=== PATIENT | female | born 1990 | race Caucasian/White ===

== ENCOUNTER 2017-08-30 14:00 | Outpatient (CLI) | payer OTHER, SELFPAY ==
[2017-08-30 14:12] VITALS: BMI 23.1
[2017-08-30] MEDS: Lactated Ringers 1,000 ML 50 ML IV (14:21)
[2017-08-30 15:00] LABS: Hematocrit 41.6 % (37-47); Hemoglobin 14.6 g/dl (12.0-15.0); Mean Corp Hgb Conc 35.1 g/gl (32-36); Mean Corpuscular Hgb 30.7 pg (27.0-32.0); Mean Corpuscular Volume 87.4 fL (81-99); Mean Platelet Vol. 12.3 fl (6.2-12.0); Platelet Count 77 K/mm3 (150-450); RBC Distribution Width CV 12.3 % (11.6-14.6); RBC Distribution Width SD 38.7 fl (35.1-43.9); Red Blood Count 4.76 M/mm3 (4.2-5.4); White Blood Count 13.3 K/mm3 (4.4-11.0)
[2017-08-30 15:01] LABS: Scan Indicated on CBC? Y/N NO
[2017-08-30 15:06] LABS: International Normalized Ratio 0.9; Prothrombin Time (Protime)PT. 11.9 SECONDS (11.7-14.9)
[2017-08-30 15:07] LABS: Partial Thromboplast Time 33.6 Seconds (24.1-36.2)
[2017-08-30 15:12] LABS: AST(SGOT) 243 U/L (15-37); Alanine Aminotransfer ALT/SGPT 231 U/L (13-56); Creatinine, Serum 0.74 mg/dL (0.55-1.02); EST Glomerular Filtration Rate 99 mL/min (>60); Est Glom Filt Rate - Afr Amer 120 mL/min (>60); Estimated Creatinine Clearance 102.76 ml/min
[2017-08-30] MEDS: Magnesium Sulfate 20 GM/500 ML BAG IV (15:17)
--- NOTE | 2017-08-30 15:36 | OB.TRI.NOTE ---
History of Present Illness Reason For Visit: HELLP SYNDROME Date of Service: 08/30/17 Gestational age: 38 History of Present Illness: 27yo @ 38 wks, presented to L&D with Headache and Epigastric pain- at time of evaluation pt was found to have BP severe range. PT had labs drawn- which showed elevated Liver enzymes and Low platelets. pt is dated by first trimester u/s which was not c/w LMP. Pt offers no other concerns today. Home Medications Medication Instructions Recorded Vits [Prenatabs FA ] 1 tablet PO DAILY 08/30/17 Allergies No Known Allergies Allergy (Verified 08/30/17 14:15) Physical Exam General: Alert, Oriented x3 Abdomen: Soft, Tender - pain in RUQ Extremities:: Deep tendon reflexes - brisk. NO CLONUS Estimated gestational size: Appropriate for gestational size Presentation: Cephalic Cervix Dilation (cm): 0.5 Station: -2 Effacement (%): 60 NST - FHR Rate Baby A Baseline: 140 Variability:: Moderate Accelerations:: 15 x 15 Decelerations:: None NST Reactive:: Yes FHR Category:: Category I Uterine Activity:: irregular Impression/Plan 27yo @ 38 wks with HELLP SYNDROME, remote from delivery 1) reviewed HELLP SYNDROME with patient- offered transport to tertiary care center- accepted 2) Magnesium Sulfate 6gm loading dose given , 2 gm/hr 3) labs reviewed AST/ALT 243/231, PLTS 77 4) Reviewed Regional vs General anesthesia if C/S indicated 5) Labetalol protocol Started- required 40mg to bring BP down to 130s/80-90s 6) Spoke with M Dr. Gina Srinivasan, then spoke to transport team- awaiting call from Dr. Derek Owens who will be accepting physician at [place] 7) will call transport service as soon as Accepting physician is reached and plan reviewed
[2017-08-30 15:40] LABS: Mucous, Urine 0 SEEN /hpf (<or=2+)
[2017-08-30 15:55] LABS: Color, Urine Yellow (Yellow); Glucose, Dipstick Normal (Normal); Ketone-Dipstick Negative (Negative); Leukocyte Esterase-Dipstick 100 /ul (Negative); Nitrite-Dipstick Negative (Negative); Occult Blood-Urine 250 /ul (Negative); Protein-Dipstick 100 mg/dl (Negative); Urine Bilirubin Dipstick Negative (Negative); Urine Clarity Clear (Clear); Urine Urobilinogen Normal (Normal); Urine pH 6.5 (5.0 - 8.0)
[2017-08-30 16:11] LABS: Squamous Epithelial Cells - UA 5-10 SEEN /hpf (5-10); White Blood Cells 5-10 SEEN /hpf (0-5)
[2017-08-30 16:12] LABS: Bacteria 1+ /hpf (None Seen); Red Blood Cells-Urine 0-5 SEEN /hpf (0-5)
[2017-08-30 16:21] LABS: Protein, Urine (Random) 305.8 mg/dL (<11.9); Protein:Creat Ratio 12903 mg/g CRE (0-200)
== END 2017-08-30 18:30 | disposition other institution (70) ==
LOC: WP 08-31 09:03 → WPOUT 08-31 12:29
PROVIDERS: Family Provider Internal Medicine; PCP Internal Medicine; Visit Provider Obstetrics & Gynecology
DX: O14.23 HELLP syndrome (HELLP), third trimester (principal); Z3A.38 38 weeks gestation of pregnancy
CPT/HCPCS: 96365; 96366 ×3; 36415; 59025; 59050; 81001; 82565; 82570; 84156; 84450; 84460; 84550; 85027; 85610; 85730; 86850; 86900; 94760; 99218; J7120; G0378

== ENCOUNTER 2019-06-29 22:55 | Inpatient (IN) | payer OTHER, SELFPAY ==
[2019-06-29 23:24] VITALS: BMI 22.2
[2019-06-29] MEDS: Lactated Ringers 1,000 ML 200 ML IV (23:28)
[2019-06-29] MEDS: Lactated Ringers 500 ML 999 ML IV (23:35)
[2019-06-29 23:56] LABS: Absolute Lymphocyte Count 1.89 X10^3/uL (0.83-4.51); Absolute Neutrophil Count 9.9 X10^3/uL (2.0-7.7); Basophil# 0.03 X10^3/uL; Basophil% 0.2 % (0-1); Eosinophil# 0.06 X10^3/uL; Eosinophils% 0.5 % (0-5); Hematocrit 41.2 % (37-47); Hemoglobin 13.7 g/dL (12.0-15.0); Lymphocyte # 1.89 X10^3/ul (4.0); Mean Corp Hgb Conc 33.3 g/dL (32-36); Mean Corpuscular Hgb 30.1 pg (27.0-32.0); Mean Corpuscular Volume 90.5 fL (81-99); Monocyte# 0.62 X10^3/uL; Monocyte% 4.9 % (0-10); NRBC Flagged by Analyzer 0 % (0-5); Neutrophil # 9.94 X10^3/uL (2.7-7.7); Neutrophil % 79.1 % (47-70); Platelet Count 155 K/mm3 (150-450); RBC Distribution Width CV 12.4 % (11.6-14.6); RBC Distribution Width SD 40.6 fl (35.1-43.9); Red Blood Count 4.55 M/mm3 (4.2-5.4); White Blood Count 12.6 K/mm3 (4.4-11.0)
[2019-06-30] MEDS: 0.9% Saline Lock 10 ML Syringe IV (00:38)
--- NOTE | 2019-06-30 00:40 | HP.PCM_ITS ---
- Problem List (1) History of HELLP syndrome, currently Status: Acute (2) History of prior with IUGR Status: Acute History Date of Admission: 06/29/19 Final JASMINE: 07/06/19 Final JASMINE Source: LMP Gestational age: 39 Weeks and 1 Days History of this : This is a 29 year-old, G [2], P [1001], at 39 weeks gestational age presents with contractions that were on and off throughout the day. Increased in frequency and intensity late last night and came to hospital and found to be in active labor. No leakage of fluid or active bleeding. course uncomplicated. Allergies No Known Allergies Allergy (Verified 08/30/17 14:15) Home Medications: Home Medications Vits [Prenatabs FA ] 1 tablet PO DAILY 08/30/17 Smoking Status: Never smoker Alcohol: None Number of Fetus(es): 1 NST - FHR Rate Baby A Baseline: 140 Variability:: Moderate Accelerations:: 15 x 15 Decelerations:: None NST Reactive:: Yes FHR Category:: Category I Uterine Activity:: Every 2-3 minutes, strong History Past Pregnancies: Past Pregnancies Delivery Date Name GA/ Weeks Outcome Route Wt Infant Sex Labor Length Anesthesia Delivery Location Provider FOB Labs: Mom's Labs & Results 06/29/19 06/29/19 23:28 23:28 WBC 12.6 H RBC 4.55 Hgb 13.7 Hct 41.2 MCV 90.5 MCH 30.1 MCHC 33.3 RDW Std Deviation 40.6 RDW Coeff of Florecita 12.4 Plt Count 155 MPV 12.0 Immature Gran % (Auto) 0.300 Neut % (Auto) 79.1 H Lymph % (Auto) 15.0 L Schleicher % (Auto) 4.9 Eos % (Auto) 0.5 Baso % (Auto) 0.2 Absolute Neuts (auto) 9.9 H Absolute Lymphs (auto) 1.89 Nucleated RBC % 0 Blood Type Pending Antibody Screen Pending Course Did the patient receive Yes care? Labs Blood Type: A RH: POSITIVE RPR/VDRL/Syphilis Nonreactive Rubella status Immune HbSAg Negative Date Done: 11/28/18 Chlamydia Negative Gonorrhea Negative HIV/AIDS Non-Reactive Group B Strep: Negative Current Obstetrical History Gestational Diabetes No Incompetent Cervix No Infertility No IUGR No Macrosomia No Hypertension/Pre-eclampsia No Placenta Previa/Abruption No PTL/PROM No Uterine anomaly No Oligohydramnios No Polyhydramnios No Multiple gestation No Past Medical History Asthma No Diabetes No Hypertension No Heart disease No Mitral valve prolapse No Neurologic/Seizure disorder/ No Migraines Kidney disease No Liver disease No Varicosities No Clotting disorders/Hx of DVT No Thyroid Dysfunction No Other medical diseases No Psychiatric disorders No Major trauma No Abnormal PAP smear No Sleep apnea No Mammogram in the last 2 years No Medications Taken During Dose/Freq.: [aspirin] 81mg/daily Reason for taking medication [ pt has hx of HELLP syndrome-was taking low dose aspirin] ASA preventatively Social History Marital Status: Alleged father Kuldeep Cross Hx Smoking No Smoking Status Never smoker How long have you used pt denies substances (years)? Review of Systems Constitutional: Denies: Chills, Fever, Weight Change Eyes: Denies: Blurred vision HEENT: Denies: Head Aches, Sinus Congestion, Sinus Drainage Cardiovascular: Denies: Chest Pain, Palpitations Gastrointestinal: Denies: Nausea, Vomiting Genitourinary: Denies: Dysuria Psychiatric: Denies: Anxiety, Depression, Homicidal Ideations, Suicidal Ideations Physical Exam General: Alert, Oriented x3, Cooperative HEENT: Atraumatic, Normocephalic Cardiovascular: Regular rate, Regular Rhythm, No murmurs Lungs: Clear to auscultation, Normal air movement, No rhonchi, No wheeze Abdomen: Non Tender, Gravid Extremities:: No edema Neurological: Deep Tendon Reflexes 2+/4 and Symmetrical. Negative for: Clonus FACE HARDENER: Normal external genitalia Estimated gestational size: Appropriate for gestational size Presentation: Cephalic Cervix Dilation (cm): 7 - vertex, IBOW Station: -1 Effacement (%): 95 Assessment/Plan All Active Problems History of HELLP syndrome, currently (Acute) History of prior with IUGR (Acute) This is a 29 year-old, G [2], P [1001], at 39 weeks gestational age. A:Active labor Category 1 FHT P: 1) Admit to L&D 2) Routine labs, saline lock 3) Initially requesting epidural for pain management but then decided to request continuous labor support and no epidural at this time. Frequent positional c hanges, out of bed, peanut ball. 4) notified of patient in labor.
[2019-06-30] MEDS: Oxytocin 30 units/NS 500 ml 30 UNITS/500 ML IV.SOLN 334 UNITS IV (04:32)
--- NOTE | 2019-06-30 04:52 | PCM.OPRPT ---
Problem List (1) History of HELLP syndrome, currently Status: Acute (2) History of prior with IUGR Status: Acute (3) Vaginal delivery Status: Acute (4) First degree perineal laceration Status: Acute Vaginal Delivery Maternal Presentation: Active Labor Amniotic Membrane Rupture Type: Artificial Amniotic Fluid Description: Clear Final JASMINE: 07/06/19 Gestational age: 39 Weeks and 1 Days Date of Procedure: 06/30/19 Pre-Operative Diagnosis: Active Labor Post-Operative Diagnosis: Surgery/ Procedure Performed: Spontaneous Vaginal Delivery Type of Anesthesia: None Description of Procedure: Progressed to complete with strong urge to push. Unmedicated of viable male infant over first degree perineal laceration APGARS 8,9. Infant head delivered and body forth coming. Infant placed on maternal abdomen, mouth and nares suctioned for secretions, strong cry. Pitocin started for active 3rd stage management. Delayed cord clamping, cord clamped and cut after pulsations ceased by FOB. Placenta delivered spontaneously via chávez, intact, 3 vessel cord. Perineum inspected and revealed first degree perineal laceration. Repaired with 3.0 vicryl, no anesthesia due to small figure 8 stitch, patient consented. Well approximated and hemostasis achieved. Fundus firm, EBL 200ml. Vaginal sweep completed. Sponge and instrument count correct. Mom and baby stable. Family bonding well. Planning to breastfeed. notified of patient delivery. Presentation: Vertex Placental Delivery Description: Spontaneous Placenta Disposition: [facility] Cord Vessel Description: 3 Vessels Cord Entanglement: None Estimated Blood Loss: 200 ml Infant A gender: Male (1 minute): 8 (5 minute): 9 Episiotomy Description: None Laceration: Perineal Extension/lac, 1st degree Medications given after delivery: IV Pitocin Complications: None
[2019-06-30] MEDS: Ibuprofen 600 MG Tablet PO (05:39)
[2019-06-30 07:40] VITALS: BP 113/71; PULSE 70; RESP 14; TEMP 36.9
[2019-06-30 12:10] VITALS: BP 98/54; PULSE 77; RESP 16; TEMP 36.6
[2019-06-30 16:05] VITALS: BP 104/65; PULSE 83; RESP 18; TEMP 37.1
[2019-06-30 20:02] VITALS: BP 110/72; PULSE 78; RESP 16; TEMP 36.6
[2019-07-01 00:10] VITALS: BP 102/57; PULSE 74; RESP 16; TEMP 36.9
[2019-07-01 03:57] VITALS: BP 106/61; PULSE 66; RESP 16; TEMP 36.6
[2019-07-01 05:56] LABS: Hematocrit 39.9 % (37-47); Hemoglobin 13.3 g/dL (12.0-15.0); Mean Corp Hgb Conc 33.3 g/dL (32-36); Mean Corpuscular Hgb 29.8 pg (27.0-32.0); Mean Corpuscular Volume 89.5 fL (81-99); Platelet Count 141 K/mm3 (150-450); RBC Distribution Width CV 12.4 % (11.6-14.6); RBC Distribution Width SD 40.6 fl (35.1-43.9); Red Blood Count 4.46 M/mm3 (4.2-5.4)
--- NOTE | 2019-07-01 07:44 | PCM.PN.OB ---
Patient Problems: Active and Suspected Problems History of HELLP syndrome, currently (Acute) History of prior with IUGR (Acute) Vaginal delivery (Acute) First degree perineal laceration (Acute) Subjective: pt seen at bedside, doing well. reports good pain control. lochia mild, breast feeding, voiding w/o difficulty - Physical Exam Vitals/I&O's: Vital Signs Temp Pulse Resp BP 97.8 F 66 16 106/61 07/01/19 03:57 07/01/19 03:57 07/01/19 03:57 07/01/19 03:57 Oxygen Delivery Method Room Air Weight: 60.7 kg Body Mass Index (BMI) 22.2 Intake and Output for Last 24 Hours 06/29/19 06/30/19 07/01/19 23:59 23:59 23:59 Intake Total 23.33 / 23.33 2883.33 / 2883.33 1000 / 1000 Output Total 150 / 150 Balance 23.33 / 23.33 2733.33 / 2733.33 1000 / 1000 General: Alert, Oriented x3 Laboratory Results 07/01/19 05:10: WBC 10.0, RBC 4.46, Hgb 13.3, Hct 39.9, MCV 89.5, MCH 29.8, MCHC 33.3, RDW Std Deviation 40.6, RDW Coeff of Florecita 12.4, Plt Count 141 L, MPV 11.0 Current Medications Acetaminophen (Tylenol) 1,000 mg PO Q8H PRN PRN PRN Reason: Pain Score 1-3/10 Bisacodyl (Dulcolax) 10 mg RECTAL UD PRN PRN Reason: If no BM Dibucaine (Dibucaine) 1 applic TOPICAL TID PRN PRN; Protocol PRN Reason: Discomfort Hydrocortisone (Hytone) 1 applic TOPICAL TID PRN PRN; Protocol PRN Reason: Discomfort Ibuprofen (Motrin) 600 mg PO Q6H PRN PRN PRN Reason: Pain Score 1-3/10 Last Admin: 06/30/19 05:39 Dose: 600 mg Documented by: Methylergonovine Maleate (Methergine) 0.2 mg IM X1 PRN PRN Reason: Excess bleeding/uterine atony Ondansetron HCl (Zofran) 4 mg IV Q4H PRN PRN PRN Reason: Nausea Senna/Docusate Sodium (Senokot-S, [place]-Colace) 1 - 2 tablet PO DAILY PRN PRN PRN Reason: Constipation Simethicone (Mylicon) 80 mg PO PCHS PRN PRN Reason: Indigestion/Stomach pain Sodium Chloride () 5 - 15 ml IV UD PRN PRN Reason: SALINE FLUSH Medical Necessity - Tobacco Use Smoking Status: Never smoker Assessment/Plan All Active Problems History of HELLP syndrome, currently (Acute) History of prior with IUGR (Acute) Vaginal delivery (Acute) First degree perineal laceration (Acute) PPD#1, doing well routine care pain mgmt dc home
--- NOTE | 2019-07-01 07:48 | DCINST_ITS ---
Discharge Diet: No Restrictions Discharge Activity: Return to Normal Activity, May not drive while taking narcotic pain medications., May Shower May resume sexual activity in: 4-6 weeks Additional Activity Instructions:: Nothing in the vagina for 4-6 weeks. You may return to work/school in 6 weeks. Call your doctor if your incision/area has: Continuous Slow Oozing, Sudden Increased Bleeding, Increased Pain/ Swelling, Increased Redness, Foul Smelling Discharge Additional Instructions: If you experience any of the following, contact your healthcare provider. * Bleeding that soaks a pad every hour for 2 hours * Fever 100.4 or higher * Unrelieved incision or abdominal pain * Swelling, redness, discharge or bleeding from your incision or episiotomy site * Your incision begins to separate * Problems urinating (including inability to urinate or burning while urinating). * Visual changes * Severe headache * Flu-like symptoms * Pain or redness in one of both of your breasts * Pain, warmth, tenderness or swelling in your legs, especially the calf area * Frequent nausea and vomiting * Symptoms of depression or anxiety If you experience any of the following, call 911 or go to the nearest Emergency Room. * Chest pain * Problems breathing * Seizure activity * Partial or complete paralysis of a body part, slurred speech, weakness or drooping of the face, or a sudden inability to walk or hold your balance Allergies/Adverse Reactions: Allergies No Known Allergies Allergy (Verified 08/30/17 14:15) Medications to take at Discharge Vits [Prenatabs FA ] 1 tablet PO DAILY 08/30/17 Ibuprofen [Motrin] 600 mg PO Q6H PRN PRN #60 tab 07/01/19 The following prescriptions were given: Ibuprofen [Motrin] 600 mg PO Q6H PRN PRN #60 tab PRN Reason: Pain Score 1-310 Transmission Status: Pending to [id number] When: Call to make an appointment with your doctor in 1-2 weeks then at 6 weeks. . Primary Care Physician: Kacey Taylor MD [Primary Care Provider] - Test Results: Test results from this visit will be discussed in further detail at your follow- up appointment, if applicable.
--- NOTE | 2019-07-01 07:48 | PCM.DCVAG ---
Discharge Diet: No Restrictions Discharge Activity: Return to Normal Activity, May not drive while taking narcotic pain medications., May Shower May resume sexual activity in: 4-6 weeks Additional Activity Instructions:: Nothing in the vagina for 4-6 weeks. You may return to work/school in 6 weeks. Call your doctor if your incision/area has: Continuous Slow Oozing, Sudden Increased Bleeding, Increased Pain/ Swelling, Increased Redness, Foul Smelling Discharge Additional Instructions: If you experience any of the following, contact your healthcare provider. Bleeding that soaks a pad every hour for 2 hours Fever 100.4 or higher Unrelieved incision or abdominal pain Swelling, redness, discharge or bleeding from your incision or episiotomy site Your incision begins to separate Problems urinating (including inability to urinate or burning while urinating). Visual changes Severe headache Flu-like symptoms Pain or redness in one of both of your breasts Pain, warmth, tenderness or swelling in your legs, especially the calf area Frequent nausea and vomiting Symptoms of depression or anxiety If you experience any of the following, call 911 or go to the nearest Emergency Room. Chest pain Problems breathing Seizure activity Partial or complete paralysis of a body part, slurred speech, weakness or drooping of the face, or a sudden inability to walk or hold your balance Allergies/Adverse Reactions: Allergies No Known Allergies Allergy (Verified 08/30/17 14:15) Medications to take at Discharge Vits [Prenatabs FA ] 1 tablet PO DAILY 08/30/17 Ibuprofen [Motrin] 600 mg PO Q6H PRN PRN #60 tab 07/01/19 The following prescriptions were given: Ibuprofen [Motrin] 600 mg PO Q6H PRN PRN #60 tab PRN Reason: Pain Score 1-3/10 Transmission Status: Pending to [facility] When: Call to make an appointment with your doctor in 1-2 weeks then at 6 weeks. . Primary Care Physician: Kacey Taylor MD [Primary Care Provider] - Test Results: Test results from this visit will be discussed in further detail at your follow-up appointment, if applicable.
[2019-07-01 08:30] VITALS: BP 106/70; PULSE 80; RESP 14; TEMP 36.6
[2019-07-01 14:10] VITALS: BP 97/55; PULSE 75; RESP 12; TEMP 36.6
== END 2019-07-01 16:35 | disposition home or self-care (01) | DRG 807 ==
PROVIDERS: Admitting Provider Advanced Practice Midwife; Family Provider Internal Medicine; PCP Internal Medicine; Visit Provider Advanced Practice Midwife
DX: O14.24 HELLP syndrome, complicating childbirth (principal); Z37.0 Single live birth; Z3A.39 39 weeks gestation of pregnancy; O70.0 First degree perineal laceration during delivery
CPT/HCPCS: 59025; 59050; 85025; 85027; 86850; 86900; 86901; 99218; J7120; A4216; G0378

== ENCOUNTER 2021-11-13 02:56 | Inpatient (IN) | payer OTHER, SELFPAY ==
[2021-11-13] VITALS (46 sets, daily range): BP systolic 78–142; BP diastolic 48–79; PULSE 65–98; RESP 12–16; TEMP 36.3–37.3; O2SAT 97–100; BMI 22.5
[2021-11-13] MEDS: Lactated Ringers 1,000 ML 200 ML IV (03:00)
[2021-11-13] MEDS: Lactated Ringers 500 ML 999 ML IV ×2 (03:00→07:01)
[2021-11-13 03:18] LABS: Absolute Lymphocyte Count 1.83 X10^3/uL (0.83-4.51); Absolute Neutrophil Count 7.5 X10^3/uL (2.0-7.7); Basophil# 0.02 X10^3/uL; Basophil% 0.2 % (0-1); Eosinophil# 0.06 X10^3/uL; Eosinophils% 0.6 % (0-5); Hematocrit 40.3 % (37-47); Hemoglobin 13.6 g/dL (12.0-15.0); Lymphocyte # 1.83 X10^3/ul (0.83-4.51); Lymphocyte % 18.1 % (19-41); Mean Corp Hgb Conc 33.7 g/dL (32-36); Mean Corpuscular Hgb 30.3 pg (27.0-32.0); Mean Corpuscular Volume 89.8 fL (81-99); Mean Platelet Vol. 11.6 fl (6.2-12.0); Monocyte# 0.66 X10^3/uL; Monocyte% 6.5 % (0-10); NRBC Flagged by Analyzer 0 % (0-5); Neutrophil # 7.53 X10^3/uL (2.7-7.7); Neutrophil % 74.4 % (47-70); Platelet Count 159 K/mm3 (150-450); RBC Distribution Width SD 39.1 fl (35.1-43.9); Red Blood Count 4.49 M/mm3 (4.2-5.4); White Blood Count 10.1 K/mm3 (4.4-11.0)
[2021-11-13] MEDS: fentaNYL-bupivacaine (epidural) 100 ML BAG EPIDURAL (04:31)
--- NOTE | 2021-11-13 06:39 | HP.PCM.OB_ITS ---
HPI - General General Date of Admission: 11/13/21 HPI Narrative LOU CORREIA, is a 31 F at 38.3 weeks gestation who presents in spontaneous labor. Patient reports starting contractions yesterday that continued to increase in intensity and frequency. Denies any loss of fluid or vaginal bleeding. Positive movement. She has a history of preeclampsia with first . This has been uncomplicated. Maternal Data Information JASMINE Calculator Estimated Delivery Date Method Current WG Current Estimate 11/24/21 Manual 38w 3d PFSH [facility] Medical History Family history of hearing loss at age younger than 7 years Pre-eclampsia Home Medications Prenatabs FA 1 tab PO DAILY 08/30/17 [History Last Taken 11/12/21 10:00] aspirin 81 mg PO DAILY 11/13/21 [History Last Taken Unknown] Allergy/AdvReac Type Severity Reaction Status Date / Time No Known Allergies Allergy Verified 08/30/17 14:15 Surgical History History of placement of ear tubes [place] teeth extracted Social History Smoking Status: Never smoker History Elective abortions Hx Para 2 Spontaneous abortions Hx # Term Pregnancies Ectopic pregnancies Hx # Pregnancies Multiple births # of living children ROS Eyes Eyes: Denies blurry vision, change in vision or spots in vision ENT HEENT: Denies dizziness or headache(s) Cardiovascular Cardiovascular: Denies abdominal pain, chest pain or dyspnea Respiratory/Chest Respiratory/Chest: Denies cough, dyspnea, shortness of breath at rest or shortness of breath with exertion Gastrointestinal Gastrointestinal: Denies abdominal pain, diarrhea or vomiting Genitourinary Genitourinary: Denies change in urinary stream, difficulty urinating or dysuria Musculoskeletal Musculoskeletal: Reports none Integumentary Integumentary: Denies rash Neurologic Neurologic: Denies dizziness, headache(s), memory loss or weakness Psychiatric Psychiatric: Reports none Vital Signs Vital Signs Vital Signs: 11/13/21 02:42 11/13/21 02:44 11/13/21 03:49 Temperature 97.8 F Temperature Source Temporal Pulse Rate 91 82 Blood Pressure 142/75 H BP Systolic 142 BP Diastolic 75 Pulse Ox 98 99 11/13/21 03:54 11/13/21 03:57 11/13/21 03:59 Temperature Temperature Source Pulse Rate 98 83 86 Blood Pressure 123/74 H BP Systolic 123 BP Diastolic 74 Pulse Ox 98 97 11/13/21 04:02 11/13/21 04:04 11/13/21 04:09 Temperature Temperature Source Pulse Rate 83 97 89 Blood Pressure 121/75 H 132/73 H BP Systolic 121 132 BP Diastolic 75 73 Pulse Ox 97 97 11/13/21 04:13 11/13/21 04:14 11/13/21 04:17 Temperature Temperature Source Pulse Rate 87 82 85 Blood Pressure 125/78 H 128/65 H BP Systolic 125 128 BP Diastolic 78 65 Pulse Ox 97 11/13/21 04:19 11/13/21 04:22 11/13/21 04:24 Temperature Temperature Source Pulse Rate 83 87 84 Blood Pressure 98/53 L BP Systolic 98 BP Diastolic 53 Pulse Ox 98 97 11/13/21 04:28 11/13/21 04:29 11/13/21 04:32 Temperature Temperature Source Pulse Rate 86 92 83 Blood Pressure 118/70 96/54 L BP Systolic 118 96 BP Diastolic 70 54 Pulse Ox 98 11/13/21 04:34 11/13/21 04:39 11/13/21 04:43 Temperature Temperature Source Pulse Rate 89 93 83 Blood Pressure 101/54 L BP Systolic 101 BP Diastolic 54 Pulse Ox 100 100 11/13/21 04:44 11/13/21 04:47 11/13/21 04:49 Temperature Temperature Source Pulse Rate 88 92 81 Blood Pressure 101/57 L BP Systolic 101 BP Diastolic 57 Pulse Ox 100 100 11/13/21 04:52 11/13/21 04:54 11/13/21 04:59 Temperature Temperature Source Pulse Rate 79 81 86 Blood Pressure 98/54 L BP Systolic 98 BP Diastolic 54 Pulse Ox 100 100 11/13/21 06:05 11/13/21 06:06 Temperature 97.9 F Temperature Source Temporal Pulse Rate 77 Blood Pressure 87/52 L BP Systolic 87 BP Diastolic 52 Pulse Ox Weight Weight: 135 lb 6 oz Body Mass Index (BMI) 22.5 Physical Exam Const alert, oriented x3 and no apparent distress General Appearance: cooperative Orientation / Consciousness: awake Exam Limitations: no limitations HEENT normocephalic Head and Scalp: normal to inspection Eyes General Eye: normal appearance of both eyes Neck full ROM and no lymphadenopathy Lymph Lymphatic: no lymphadenopathy noted Chest inspection of chest normal Resp normal respiratory effort, normal air movement and clear to auscultation bilaterally Effort and Inspection: able to speak in complete sentences and symmetric chest movement Cardio regular rate and regular rhythm GI normal to inspection, nondistended, normoactive bowel sounds Manual OB Exam: dilated 7, effaced 90 and station -1 Back/Spine normal ROM Extremity full ROM and no calf tenderness Skin no rashes or lesions noted General Skin Exam: no breakdown Neuro oriented x3 and CN's II-XII intact bilaterally Psych mental status grossly normal and thought process normal Labs Labs Labs: Blood Type A POSITIVE Antibody Screen NEGATIVE Hct 40.3 % (37-47) Hgb 13.6 g/dL (12.0-15.0) Rhogam given: No Assessment & Plan (1) Spontaneous onset of labor: (2) History of HELLP syndrome, currently : PLAN: Admit to labor and delivery Routine labs GBS negative Epidural when indicated CE- /-1 AROM for small amount of clear fluid Cat. 1 tracing- NST reactive Start Pitocin IV and titrate per orders Anticipate Dr. Francisco notified and is collaborating physician
[2021-11-13] MEDS: Oxytocin 30 units/NS 500 ml 30 UNITS/500 ML IV.SOLN IV (06:55)
[2021-11-13] MEDS: Oxytocin 30 units/NS 500 ml 30 UNITS/500 ML IV.SOLN 334 UNITS IV (08:05)
--- NOTE | 2021-11-13 08:18 | OP.PCM_ITS ---
Problems Associated Problem List Diagnoses (1) Spontaneous onset of labor: (2) Vaginal delivery: (3) 38 weeks gestation of : Report of Operation Date of Procedure: 11/13/21 Pre-Operative Diagnosis: 38 week gestation, single IUP, active labor at term Post-Operative Diagnosis: As above Surgery/Procedure Performed:: VAVD Description of Surgical Findings:: VFI delivered in OA position. Intact perineum. Normal appearing placenta with 3 VC. Apgars 8, 9. Surgeon: Julissa Francisco electrical technician instructor: None Type of Anesthesia: Epidural Special Medications: None Specimen's removed: Placenta Drains: Jeffries Estimated Blood Loss (mL): 200 Fluids Replaced: N/A Description of Procedure: Indications: Patient presented in active labor. She progressed to complete and was pushing. heart rate decelerations were noted with pushing. Position changes were initiated and the patient was pushing on her side. Oxygen was started. Pitocin was stopped. With pushing the heart rate dropped to 60 bpm without recovery, and a vacuum-assisted vaginal delivery was discussed with the patient and her partner. Discussed risk, benefits, alternatives to a vacuum assisted vaginal delivery. The patient desired to proceed with vacuum-assisted vaginal delivery. Procedure: The vacuum was applied in usual fashion after patient was comfortable with epidural, bladder was drained with a Jeffries, infant was in occiput anterior position, she was completely dilated at +2 station. The vacuum was used through 1 contraction and the patient pushed 3 times through that 1 contraction. There were no pop offs with the vacuum. Vacuum was only used for 1 contraction with gentle traction, and the head of the infant was easily delivered. The vacuum was removed. The anterior shoulder was delivered with gentle traction followed by the posterior shoulder and body of the . A viable female infant was delivered without any force or delay. The infant was placed on the maternal abdomen the cord was clamped and cut immediately by the father the baby. Cord gases were obtained. The placenta was delivered with fundal massage. Uterine was explored x1. The uterus was firm and bleeding was hemostatic. No lacerations were noted. Sponge and needle counts were correct. A vaginal sweep was performed. Grafts/Implants Used: None Complications None Admit VTE Documentation VTE Present on Admission: No
[2021-11-13] MEDS: Ibuprofen 600 MG Tablet PO (09:35)
[2021-11-14 00:35] VITALS: BP 123/84; PULSE 72; RESP 16; TEMP 36.8
[2021-11-14] MEDS: Ibuprofen 600 MG Tablet PO (03:58)
[2021-11-14 04:00] VITALS: BP 118/79; PULSE 83; RESP 20; TEMP 36.5
--- NOTE | 2021-11-14 04:14 | NURSING ---
pt called RN requesting pain medication. upon entering pt's room, this RN found pt sitting on couch after ambulating to bathroom. pt reported that she had a lot of cramping abdominal pain - would rate it an 8/10, and pt was shaking. pt reports that she could be shaking from the pain or from nerves because the pain was so intense and sudden. pt was feeding infant when the cramping started. infant now laying in crib. helped pt back to bed and did fundal check and VS. fundus firm and -1U, bleeding appropriate. BP 118/79, HR 83, R 20. administered Motrin PO and gave pt heating pad. pt no longer shaking and reports that she feels a little bit better. rn charge came to room and also assessed pt. will continue to monitor.
[2021-11-14] MEDS: Acetaminophen 500 MG Tablet 1000 MG PO (04:35)
--- NOTE | 2021-11-14 08:06 | PCM.PN.OB ---
Subjective Subjective Doing well today. Having some cramping. Lochia is normal. Breast-feeding without complaints. She denies chest pain, shortness of breath, leg pain. She desires discharge home today. Objective Data Objective Data Vital Signs: Vital Signs Temp Pulse Resp BP Pulse Ox 97.7 F L 83 20 H 118/79 100 11/14/21 04:00 11/14/21 04:00 11/14/21 04:00 11/14/21 04:00 11/13/21 04:59 Oxygen Delivery Method Room Air Weight: 135 lb 6 oz Body Mass Index (BMI) 22.5 Intake & Output: Intake and Output for Last 24 Hours 11/12/21 11/13/21 11/14/21 23:59 23:59 23:59 Intake Total 3601.8 / 3601.8 Output Total 900 / 900 Balance 2701.8 / 2701.8 Lab / Micro Data Result Diagrams: 11/13/21 03:00 Micro: Microbiology 11/13/21 03:00 Nasal Secretion SARS-CoV-2 Antigen (Rapid) - Final Physical Exam Const alert and no apparent distress General Appearance: comfortable HEENT normocephalic Resp normal respiratory effort GI soft to palpation, non-tender and non-distended GI Narrative: FF@U-1 Assessment & Plan (1) Vacuum-assisted vaginal delivery: PLAN: PPD#1 s/o VAVD. Doing well. . Desires discharge home today.
--- NOTE | 2021-11-14 08:10 | PCM.DC ---
Discharge Instructions Diet Discharge Diet: No restrictions Activity Discharge Activity: May Drive (Once you feel your core is strong enough to slam on a brake or turn a steering wheel sharply) and May Shower May resume sexual activity in: 6 weeks Weight Bearing Status: Weight bearing as tolerated Lifting Restrictions: Nothing heavier than baby for 2-3 weeks Dressing / Incision Call your doctor if you observe: Fever of 101 or Higher, Coldness, Increased Pain, Numbness or Tingling, Inability to urinate, Inability to have a bowel movement, Using more than 1 pad per hour, Shortness of breath, Dizziness, Fainting spells, Swelling in the ankles, Chest pain, Increased palpitations (irregular heartbeat), Calf discomfort and Uncontrolled pain Follow Up Care Please Follow Up With: Julissa Francisco DO When: 6 week visit Test Results: Test results from this visit will be discussed in further detail at your follow-up appointment, if applicable. Discharge Plan Admission Admit Date/Time: 11/13/21 02:56 Primary Reason for Your Visit: Delivery Attending Provider: Julissa Francisco Primary Care Provider: Kacey Taylor Instructions Patient Instructions: After a Vaginal Discharge Orders/Prescriptions Prescriptions: New ibuprofen 600 mg tablet 600 mg PO Q6H PRN (Reason: pain) Qty: 30 RF: 0 Continued Prenatabs FA 1 TABLET tablet 1 tab PO DAILY RF: 0 Discontinued aspirin 81 mg Capsule 81 mg PO DAILY RF: 0 Referrals / Follow Up: Kacey Taylor MD [Primary Care Provider] - Disposition Disposition (needs filled in before D/C Order can be placed): Home, Self Care
[2021-11-14 08:15] VITALS: BP 112/62; PULSE 68; RESP 16; TEMP 36.6
== END 2021-11-14 11:00 | disposition home or self-care (01) | DRG 807 ==
LOC: WPOUT 02:57 → WP 02:57
PROVIDERS: Advanced Practice Midwife; Admitting Provider Obstetrics & Gynecology; PCP Internal Medicine; Visit Provider Obstetrics & Gynecology
DX: O76 Abnormality in fetal heart rate and rhythm complicating labor and delivery (principal); Z37.0 Single live birth; Z3A.38 38 weeks gestation of pregnancy; Z87.59 Personal history of other complications of pregnancy, childbirth and the puerperium
CPT/HCPCS: 59025; 59050; 85025; 86850; 86900; 86901; 87426; 99218; J7120; G0378

== ENCOUNTER 2021-11-17 00:02 | Outpatient (CLI) | payer OTHER, SELFPAY ==
[2021-11-17] VITALS (9 sets, daily range): BP systolic 117–132; BP diastolic 59–83; PULSE 68–79; TEMP 36.8; O2SAT 97–98; BMI 21.7
[2021-11-17] MEDS: 0.9% Saline Lock 10 ML Syringe IV (00:25)
[2021-11-17 00:45] LABS: Hematocrit 38.6 % (37-47); Hemoglobin 12.8 g/dL (12.0-15.0); Mean Corp Hgb Conc 33.2 g/dL (32-36); Mean Corpuscular Hgb 30.4 pg (27.0-32.0); Mean Corpuscular Volume 91.7 fL (81-99); Mean Platelet Vol. 11.1 fl (6.2-12.0); Platelet Count 189 K/mm3 (150-450); RBC Distribution Width CV 11.9 % (11.6-14.6); RBC Distribution Width SD 39.8 fl (35.1-43.9); Red Blood Count 4.21 M/mm3 (4.2-5.4); White Blood Count 8.5 K/mm3 (4.4-11.0)
[2021-11-17 00:57] LABS: AST(SGOT) 34 U/L (15-37); Alanine Aminotransfer ALT/SGPT 65 U/L (13-56); Creatinine, Serum 0.47 mg/dL (0.55-1.02); EST Glomerular Filtration Rate 162 mL/min (>60); Est Glom Filt Rate - Afr Amer 196 mL/min (>60); Estimated Creatinine Clearance 156.06 ml/min; Uric Acid 4.9 mg/dL (2.6-6.0)
--- NOTE | 2021-12-12 14:09 | OB.TRI.NOTE ---
HPI - General HPI Narrative LOU CORREIA, is a 31 F who presents to L&D. Maternal Data Information JASMINE Calculator Estimated Delivery Date Method Current WG Current Estimate 11/24/21 Manual 42w 4d PFSH [facility] Medical History (Updated 12/12/21 @ 14:[address] Edd Gilbert MD) Family history of hearing loss at age younger than 7 years History of HELLP syndrome, currently Pre-eclampsia Vacuum-assisted vaginal delivery Vaginal delivery Home Medications Prenatabs FA 1 tab PO DAILY 08/30/17 [History Last Taken 11/16/21 13:30] Allergy/AdvReac Type Severity Reaction Status Date / Time No Known Allergies Allergy Verified 08/30/17 14:15 Surgical History History of placement of ear tubes [place] teeth extracted Social History Smoking Status: Never smoker History Elective abortions Hx Para 2 Spontaneous abortions Hx # Term Pregnancies Ectopic pregnancies Hx # Pregnancies Multiple births # of living children Assessment & Plan (1) : QUALIFIERS: Weeks of gestation: unspecified Qualified Code(s): Z34.90 - Encounter for supervision of normal , unspecified, unspecified trimester PLAN: Reactive NST for false labor
== END 2021-11-17 01:18 | disposition home or self-care (01) ==
LOC: WPOUT 00:07 → WP 00:07
PROVIDERS: PCP Internal Medicine; Visit Provider Obstetrics & Gynecology
DX: O47.9 False labor, unspecified (principal); Z3A.00 Weeks of gestation of pregnancy not specified
CPT/HCPCS: 36415; 82565; 84450; 84460; 84550; 85027; 99218; A4216; G0378